=== PATIENT | male | born 1945 | race Caucasian/White ===

== ENCOUNTER → 2018-02-15 | Outpatient (CLI) | payer MEDICARE ==
[2018-02-15 14:17] LABS: Potassium 4.1 mmol/L (3.5-5.1)
[2018-02-15 14:21] LABS: Basophils % (A) 1 %; Eosinophils # (A) 0.1 k/uL (0-0.7); Eosinophils % (A) 2 %; HCT 44.1 % (39.0-53.0); HGB 14.1 gm/dL (13.0-17.5); Lymphocytes # (A) 1.1 k/uL (1.0-4.8); Lymphocytes % (A) 26 %; MCH 28.8 pg (25.0-35.0); Mean Platelet Volume 6.5; Monocytes # (A) 0.3 k/uL (0-1.0); Monocytes % (A) 6 %; Neutrophils # (A) 2.7 k/uL (1.3-7.7); Neutrophils % (A) 64 %; Platelet Count 241 k/uL (150-450); RBC 4.91 m/uL (4.30-5.90); RDW 13.3 % (11.5-15.5); WBC 4.3 k/uL (3.8-10.6)
== END | disposition home or self-care (01) ==
LOC: LABPAT 13:54
PROVIDERS: ATTEND Orthopaedic Surgery
DX: Z01.812 Encounter for preprocedural laboratory examination (principal); M72.0 Palmar fascial fibromatosis [Dupuytren]
CPT/HCPCS: 36415; 80051; 85025

== ENCOUNTER 2018-03-07 08:55 | Day surgery (SDC) | payer MEDICARE ==
[2018-02-26 09:40] VITALS: BMI 27.3
--- NOTE | 2018-03-06 15:02 | HP ---
HISTORY AND PHYSICAL DATE OF SURGERY: 03/07/2018 Alan Weems is a 72-year-old patient seen with a right hand Dupuytren's contracture. We discussed partial palmar fasciectomy. The patient was agreeable, consent was obtained. PAST MEDICAL HISTORY: Hyperlipidemia. PAST SURGICAL HISTORY: Carpal tunnel release. DAILY MEDICATIONS: 1. Atorvastatin. 2. Multivitamin. 3. Viagra as needed. ALLERGIES: None reported. SOCIAL HISTORY: Patient denies current tobacco use. Physical evaluation of the right hand, there is an obvious Dupuytren's contracture, which is causing inability to extend the right ring finger by approximately 30 degrees. It is tender to palpation. There is some tenderness of the CMC joint. There is good perfusion sensation distally. Radiographs of the right hand revealed carpometacarpal osteoarthritis. IMPRESSION: 1. Right hand Dupuytren's contracture. 2. Hyperlipidemia. PLAN: Right hand partial palmar fasciectomy. MMODL / IJN: [id number] /
[~2018-03-07 08:55] MED LIST: LACTATED RINGERS 1,000 ML IV SCH; ONDANSETRON 4 MG/2 ML VIAL IVP ONE; ceFAZolin IN SWFI 2 GM/20 ML SYRINGE IVP ONE; fentaNYL (PF) 50 MCG/ML 2 ML AMP IV PRN
[2018-03-07] MEDS ORDERED: LIDOCAINE 1% 20 ML VIAL (10MG/ML) FOR IV START INTRADERMA ONE (09:40)
[2018-03-07] MEDS ORDERED: SUCCINYLCHOLINE CHLORIDE 100 MG/5 ML SYR IV ONE (11:12)
[2018-03-07] MEDS ORDERED: PROPOFOL 10 MG/ML 20 ML VIAL IV ONE (11:12)
[2018-03-07] MEDS ORDERED: LIDOCAINE 1% INJ 10MG/ML (20 ML MDV) ONE (11:12)
[2018-03-07] MEDS ORDERED: MIDAZOLAM 2 MG/2 ML VIAL ONE (11:12)
[2018-03-07] MEDS ORDERED: fentaNYL (PF) 50 MCG/ML 2 ML AMP ONE (11:12)
[2018-03-07] MEDS ORDERED: BUPIVACAINE (PF) 0.25% 30 ML VIAL SQ ONE (11:54)
--- NOTE | 2018-03-07 12:02 | P.OP ---
Date of Procedure: 03/07/18 Preoperative Diagnosis: Right hand Dupuytren's contracture Postoperative Diagnosis: Same Procedure(s) Performed: Right hand partial palmar fasciectomy Anesthesia: OSMAR, local Surgeon: Dmitriy Carey Estimated Blood Loss (ml): 7 Pathology: none sent Condition: stable Disposition: PACU Indications for Procedure: 72-year-old patient seen with a symptomatic right hand Dupuytren's contracture. We discussed options, he elected to proceed with partial palmar fasciectomy. Operative Findings: See description of procedure Description of Procedure: The patient was taken to the operative suite. The patient received preoperative IV antibiotics. The patient underwent a general anesthetic by the department of anesthesia. A well-padded tourniquet was placed proximal right upper extremity. The right upper extremity was prepped and draped in the normal sterile orthopedic fashion. The extremity was elevated and tourniquet insufflated to 250. A Blanca incision was now made based over the area of the Dupuytren's contracture measuring approximately 4-5 cm in length. Careful dissection was taken down to the contracture. It was dissected out carefully. At this point a partial palmar fasciectomy was performed. After this was performed was able to fully extend the right ring finger which was a had a 30 extension deficit. There was good excursion of the tendon. The wound was irrigated. The skin margins were proximal nylon suture. I infiltrated the incision site with quarter percent plain Marcaine totaling 14 mL. Sterile dressings were applied. The tourniquet was released with immediate capillary refill of all digits noted. The patient was now awakened, transferred to a bed and recovery stable condition.
[2018-03-07 12:13] VITALS: RESP 16; TEMP 97
[2018-03-07 13:20] VITALS: BP 143/77; PULSE 71
== END 2018-03-07 13:36 | disposition home or self-care (01) ==
LOC: OR 08:55
PROVIDERS: ATTEND Orthopaedic Surgery
DX: M72.0 Palmar fascial fibromatosis [Dupuytren] (principal); E78.5 Hyperlipidemia, unspecified; M19.041 Primary osteoarthritis, right hand; R56.9 Unspecified convulsions; Z79.899 Other long term (current) drug therapy; Z88.8 Allergy status to other drugs, medicaments and biological substances
CPT/HCPCS: 26123; J2250; J2405; J2001; J3010; J0330; J2704

== ENCOUNTER → 2021-09-06 | Outpatient (CLI) | payer MEDICARE ==
--- NOTE | 2021-09-06 12:19 | MR ---
EXAMINATION TYPE: MR knee LT wo con DATE OF EXAM: 09/06/2021 COMPARISON: Outside left knee x-ray August 23, 2021 HISTORY: L knee medial pain and swelling for 4 months per patient TECHNIQUE: Multiplanar, multisequence imaging of the left knee is performed without IV contrast. FINDINGS: MEDIAL MENISCUS: Medial extrusion of medial meniscus with increased signal central portion extending to inferior articular surface. LATERAL MENISCUS: Anterior and posterior horns are intact without tear. CRUCIATE LIGAMENTS: The anterior and posterior cruciate ligaments are intact and unremarkable. COLLATERAL LIGAMENTS: The medial collateral ligament and lateral collateral ligament complex are inta ct. Some surrounding fluid medial collateral ligament. EXTENSOR MECHANISM: Visualized quadriceps and patellar tendons are intact. EFFUSION: Tiny suprapatellar joint effusion. POPLITEAL CYST: [id number] sized multiseptated popliteal/giron cyst measuring 4.7 cm long axi s sagittal image 27. TRICOMPARTMENT SPACES: Mild to moderate narrowing medial tibiofemoral and patellofemoral compartments . Mild spurring at these levels. CARTILAGE: Cartilaginous loss medial tibiofemoral compartment. No full-thickness defects. No chondrom alacia patella is present BONE MARROW SIGNAL: No focal abnormal marrow signal is appreciated. OTHER: No additional significant abnormality is appreciated. IMPRESSION: 1. Full-thickness tear medial meniscus centered central body. 2. Grade 1 MCL sprain injury. 3. Mild to borderline moderate tricompartment degenerative changes greatest medial tibial femoral com partment favored product of osteoarthritis in patient of this age. 4. Small to moderate size multiseptated popliteal cyst.
== END | disposition home or self-care (01) ==
LOC: RADMRIMAIN 10:47
PROVIDERS: ATTEND Orthopaedic Surgery
DX: S83.242A Other tear of medial meniscus, current injury, left knee, initial encounter (principal); S83.412A Sprain of medial collateral ligament of left knee, initial encounter; M17.12 Unilateral primary osteoarthritis, left knee; M71.22 Synovial cyst of popliteal space [Baker], left knee; X58.XXXA Exposure to other specified factors, initial encounter

== ENCOUNTER → 2021-09-23 | Outpatient (CLI) | payer MEDICARE ==
[2021-09-23 14:56] LABS: Basophils # (A) 0.03 X 10*3/uL (0.00-0.10); Basophils % (A) 0.8 %; Eosinophils # (A) 0.08 X 10*3/uL (0.04-0.35); Eosinophils % (A) 2.1 %; HCT 47.2 % (39.6-50.0); HGB 15.1 g/dL (13.0-17.0); Immature Grans, Automated 0 %; Lymphocytes # (A) 0.88 X 10*3/uL (0.90-5.00); Lymphocytes % (A) 23.3 %; MCH 28.5 pg (27.0-32.0); MCV 89.2 fL (80.0-97.0); Mean Platelet Volume 9.6 fL (9.5-12.2); Monocytes # (A) 0.46 X 10*3/uL (0.20-1.00); Monocytes % (A) 12.2 %; NRBC Per 100 WBC 0 /100 WBCS (0.0-0.0); Neutrophils # (A) 2.33 X 10*3/uL (1.80-7.70); Neutrophils % (A) 61.6 %; Platelet Count 203 X 10*3/uL (140-440); RBC 5.29 X 10*6/uL (4.40-5.60); RDW 13.2 % (11.5-14.5); WBC 3.78 X 10*3/uL (4.50-10.00)
[2021-09-23 15:01] LABS: Anion Gap 9.5 mmol/L (10.00-18.00); Carbon Dioxide 25.9 mmol/L (20.0-27.5); Potassium 4.5 mmol/L (3.5-5.5)
== END | disposition home or self-care (01) ==
LOC: LABWHC1 07:44
PROVIDERS: ATTEND Orthopaedic Surgery
DX: Z01.818 Encounter for other preprocedural examination (principal); I45.10 Unspecified right bundle-branch block
CPT/HCPCS: 36415; 80051; 85025; 93005

== ENCOUNTER 2021-10-20 09:17 | Day surgery (SDC) | payer MEDICARE ==
[2021-10-18 16:00] VITALS: BMI 28.8
--- NOTE | 2021-10-19 15:14 | HP ---
HISTORY AND PHYSICAL REASON FOR ADMISSION: Surgery scheduled for 10/20/2021 HISTORY OF PRESENT ILLNESS: Alan Weems is a 75-year-old patient seen with progressive left knee pain. We discussed options for treatment. He elected to proceed with left knee arthroscopy. Consent is obtained. PAST MEDICAL HISTORY: Hyperlipidemia, gastroesophageal reflux disease. PAST SURGICAL HISTORY: Carpal tunnel surgery, bowel surgery, cataract surgery. DAILY MEDICATIONS: Aspirin, atorvastatin, omeprazole and Advil. ALLERGIES: DILANTIN. SOCIAL HISTORY: Denies tobacco use currently. PHYSICAL EVALUATION OF THE LEFT KNEE: Range of motion is zero to 130. Mild to moderate effusion. Tenderness medial joint line. Positive medial Leigh's. Ligaments stable. Hip rotation without pain. Distal neurovascular exam intact. RADIOGRAPHS: Left knee revealed mild osteoarthritis. MRI left knee revealed medial meniscal tear and popliteal cyst. IMPRESSION: 1. Internal derangement of left knee with medial meniscal tear. 2. Hyperlipidemia. 3. Gastroesophageal reflux disease. PLAN: Left knee arthroscopy with partial medial meniscectomy and debridement. Surgery scheduled for 10/20/2021. MMODL / IJN: [id number] /
[2021-10-20] MEDS ORDERED: ONDANSETRON 4 MG/2 ML VIAL IVP ONE (09:27)
[2021-10-20] MEDS ORDERED: DEXAMETHASONE SOD PHOSPHATE 4 MG/ML 1 ML VIAL IV ONE (09:27)
[2021-10-20] MEDS ORDERED: HYDROmorphone 0.5 MG/0.5 ML SYRINGE IVP PRN (09:27)
[2021-10-20] MEDS ORDERED: LACTATED RINGERS 1,000 ML IV SCH (09:27)
[2021-10-20] MEDS ORDERED: LACTATED RINGERS 1,000 ML IV ONE (09:45)
[2021-10-20] MEDS ORDERED: BUPIVACAINE (PF) 0.25% 30 ML VIAL SQ ONE (12:20)
[2021-10-20] MEDS ORDERED: KETOROLAC 15 MG/ML 1 ML VIAL ONE (12:25)
[2021-10-20] MEDS ORDERED: PROPOFOL 10 MG/ML 20 ML VIAL IV ONE (12:25)
[2021-10-20] MEDS ORDERED: MIDAZOLAM 2 MG/2 ML VIAL ONE (12:25)
[2021-10-20] MEDS ORDERED: LIDOCAINE 2% INJ 20 MG/ML (2 ML VIAL) ONE (12:25)
[2021-10-20] MEDS ORDERED: fentaNYL (PF) 50 MCG/ML 2 ML AMP ONE (12:25)
--- NOTE | 2021-10-20 13:17 | P.OP ---
Date of Procedure: 10/20/21 Preoperative Diagnosis: Internal derangement left knee Postoperative Diagnosis: 1. Complex tear medial meniscus left knee 2. Radial tear lateral meniscus left knee 3. Grade 3/4 chondromalacia medial femoral condyle left knee 4. Reactive synovitis medial, lateral and suprapatellar compartments left knee Procedure(s) Performed: 1. Arthroscopic partial medial and lateral meniscectomy left knee 2. Arthroscopic chondroplasty medial femoral condyle left knee 3. Arthroscopic partial synovectomy medial, lateral and suprapatellar compartments left knee Anesthesia: JILLIANA, local Surgeon: Dmitriy Carey Estimated Blood Loss (ml): 7 Pathology: none sent Condition: stable Disposition: PACU Indications for Procedure: 75-year-old patient seen with progressive left knee pain. After treatment options were discussed, he elected to proceed with arthroscopy. Operative Findings: see description of procedure Description of Procedure: Patient was taken to the operative suite. Patient underwent a general anesthetic by the department of anesthesia. Patient was given preoperative antibiotics. The left lower extremity was placed in a well-padded arthroscopic leg cary. The left leg was prepped and draped in the normal sterile orthopedic fashion. A lateral parapatellar and suprapatellar incision was made. Trochars were inserted. Arthroscopy was initiated. Suprapatellar pouch revealed diffuse thick reactive synovitis. The patellofemoral joint appeared articulate congruently. There was grade 2 chondromalacia the patellofemoral joint without Lundberg osteochondral tears present. The scope was guided into the medial gutter. No loose bodies or plica were identified. The scope was then guided into the medial compartment. A medial parapatellar incision was made. Trocar inserted followed by probe. There was a complex tear involving the posterior horn medial meniscus just extending into the midbody area. There were grade 3/4 chondroma she changes of the medial femoral condyle with some osteochondral flap tears present. There was some thick reactive synovitis anteriorly. I performed a partial medial meniscectomy getting down to stable meniscal tissue. I performed a chondroplasty of the medial femoral condyle getting down to stable osteochondral tissue. I performed a partial synovectomy decompressing the reactive synovitis. The shaver was now removed. The residual meniscus was stable. The residual osteochondral surface was stable. There was good decompression of the synovitis. Scope and probe were then guided into the intercondylar notch. Cruciates were identified, probed and found to be stable. The scope and probe were then guided into lateral compartment. There was a radial tear posterior horn lateral meniscus. There were grade 1/2 chondromalacia changes of the lateral compartment with no tears. There was some thick reactive synovitis anteriorly. I performed a partial lateral meniscectomy getting down to stable meniscal tissue. I performed a partial synovectomy decompressing the thick reactive synovitis. The shaver was now removed. The residual meniscus was stable. There was good decompression of synovitis. The scope was in guided back into the suprapatellar compartment. I introduced a motorized shaver into the suprapatellar compartment. I debrided some piecemeal fragments of meniscus I encountered. I performed a partial synovectomy. The shaver was now removed. There was good decompression of the synovitis. I took one more look on the entire knee, no residual debris. Instruments were now removed from the joint. The joint was infiltrated with .25% Marcaine. Steri- Strips were applied to the portal sites. Sterile dressings were applied. The patient was placed into a LEONOR hose. No tourniquet was utilized. The patient was awakened, transferred to a bed and taken to recovery stable satisfactory condition.
[2021-10-20 13:25] VITALS: TEMP 96.8
[2021-10-20 14:01] VITALS: RESP 20
[2021-10-20 14:19] VITALS: PULSE 72
[2021-10-20 14:28] VITALS: BP 164/94
== END 2021-10-20 14:42 | disposition home or self-care (01) ==
LOC: OR 09:17
PROVIDERS: ATTEND Orthopaedic Surgery
DX: S83.232A Complex tear of medial meniscus, current injury, left knee, initial encounter (principal); S83.282A Other tear of lateral meniscus, current injury, left knee, initial encounter; M94.262 Chondromalacia, left knee; M65.862 Other synovitis and tenosynovitis, left lower leg; X58.XXXA Exposure to other specified factors, initial encounter; E78.5 Hyperlipidemia, unspecified; K21.9 Gastro-esophageal reflux disease without esophagitis; R56.9 Unspecified convulsions; Z98.890 Other specified postprocedural states; Z79.82 Long term (current) use of aspirin; Z79.899 Other long term (current) drug therapy; Z88.8 Allergy status to other drugs, medicaments and biological substances; Z98.49 Cataract extraction status, unspecified eye
CPT/HCPCS: 29880; J2250; J1100; J0690; J2405; J3010; J1885; J2704; J2001

== ENCOUNTER → 2023-11-20 | Outpatient (CLI) | payer MEDICARE ==
--- NOTE | 2023-11-20 22:22 | US ---
EXAMINATION TYPE: US kidneys/renal and bladder DATE OF EXAM: 11/20/2023 COMPARISON: NONE CLINICAL INDICATION: Male, 77 years old with history of R94.4 Decreased GFR; Patient denies any signs , symptoms, or relevant history EXAM MEASUREMENTS: Right Kidney: 10.5 x 5.5 x 5.2 cm Left Kidney: 11.4 x 6.1 x 4.8 cm Post Void Residual Volume: NA mL Right Kidney: Simple cyst noted Left Kidney: WNL Bladder: WNL Bilateral Jets seen: Yes Normal Post Void Residual: NA There is no evidence for hydronephrosis at this point in time. No nephrolithiasis is seen. No bhanu s are identified. The urinary bladder is anechoic. Bilateral ureteral jets are seen. ? Bowel vs lesion adjacent to prostate/ bladder . Short-term follow-up could be performed with ultra sound or CT. IMPRESSION: 1. Right renal cyst. 2. Hypoechoic area posterior to the urinary bladder near the prostate. This is of uncertain etiology. Follow-up recommended.
== END | disposition home or self-care (01) ==
LOC: RADUSWWP 11:08
PROVIDERS: ATTEND Internal Medicine
DX: R94.4 Abnormal results of kidney function studies (principal); N28.1 Cyst of kidney, acquired
CPT/HCPCS: 76770